=== PATIENT | male | born 2000 | race American Indian/Alaskan Native ===

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

== ENCOUNTER 2022-05-14 11:16 | Emergency (ER) | payer OTHER ==
[~2022-05-14] VITALS: Ht 188 cm; Wt 104.3 kg
[~2022-05-14 11:16] MED LIST changes: +Oxycodone HCl5 M1 PO
== END 2022-05-14 11:40 | disposition home or self-care (01) ==
LOC: ER 11:16
DX: S29.012A Strain of muscle and tendon of back wall of thorax, initial encounter (principal); F17.210 Nicotine dependence, cigarettes, uncomplicated; X50.9XXA Other and unspecified overexertion or strenuous movements or postures, initial encounter
CPT/HCPCS: 71045

== ENCOUNTER 2023-08-28 16:29 | Emergency (ER) | payer OTHER ==
[~2023-08-28] VITALS: Ht 180.3 cm; Wt 59.0 kg
[2023-08-28 16:38] VITALS: BP 127/84
== END 2023-08-28 18:15 | disposition home or self-care (01) ==
LOC: ER 16:29
DX: J02.9 Acute pharyngitis, unspecified (principal); K02.9 Dental caries, unspecified; F12.90 Cannabis use, unspecified, uncomplicated; F17.210 Nicotine dependence, cigarettes, uncomplicated; F17.290 Nicotine dependence, other tobacco product, uncomplicated
CPT/HCPCS: 87081; 87430; 99283